=== PATIENT | female | born 1960 | race Caucasian/White ===

== ENCOUNTER 2017-01-06 08:59 | Emergency (ER) | payer OTHER ==
[~2017-01-06] VITALS: Ht 172.7 cm; Wt 84.0 kg
[2017-01-06 09:01] VITALS: BP 219/112; PULSE 80; RESP 18; TEMP 97.7; O2SAT 98
--- NOTE | 2017-01-06 09:42 | RADRPT ---
EXAM DATE/TIME: 01/06/2017 09:29 [facility] COMPARISON: No previous studies available for comparison. INDICATIONS : Pain and swelling right knee, denies injury MEDICAL HISTORY : Hypertension. SURGICAL HISTORY : None. ENCOUNTER: Initial ACUITY: 1 week PAIN SCORE: 7/10 LOCATION: Right Knee FINDINGS: No definite fractures, or dislocations are identified. No definite lytic or sclerotic lesion is seen . Slight osteopenia is seen. Small joint effusion is present. CONCLUSION: Slight osteopenia and small joint effusion. Ghada Sanz MD on January 06, 2017 at 9:39 Board Certified Radiologist. This report was verified electronically.
--- NOTE | 2017-01-06 10:36 | RADRPT ---
EXAM DATE/TIME: 01/06/2017 10:01 [facility] COMPARISON: No previous studies available for comparison. INDICATIONS : Right leg swelling. MEDICAL HISTORY : Hypertension. Traumatic brain injury. CVA. Tobacco use. SURGICAL HISTORY : Tonsillectomy. ENCOUNTER: Initial ACUITY: 3 days PAIN SCORE: 8/10 LOCATION: Right leg. TECHNIQUE: Venous ultrasound of the leg was performed from the inguinal ligament to the proximal calf. Real-nancy e, color Doppler and spectral tracing, compression and augmentation techniques were used. FINDINGS: There is normal compressibility of the deep venous system from the inguinal region to the proximal ca lf. No echogenic clot is seen in the lumen of the common femoral, femoral, popliteal, and posterior tibial veins. There is a normal response of the venous system to proximal and distal augmentation an d respiration. An elongated largely anechoic collection in the medial right popliteal space has the appearance of Ba ker's cyst. CONCLUSION: No evidence of right leg DVT Probable Feliciano's cyst Mendel Montes MD on January 06, 2017 at 10:34 Board Certified Radiologist. This report was verified electronically.
[2017-01-06] MEDS ORDERED: KETOROLAC TROMETHAMINE 60 MG/2 ML (IM) VIAL IM ONE (10:45)
--- NOTE | 2017-01-06 10:45 | PD ---
HPI Chief Complaint: Pain: Acute or Chronic Time Seen by Provider: 09:09 Travel History International Travel<30 days: No Contact w/Intl Traveler<30days: No Traveled to known affect area: No History of Present Illness HPI This is a 56-year-old female who presents to the emergency department with swelling and pain in her right knee, constant, severe, worsening over the past week described as aching pain. She is evacuating from [place] and has been in the car for 7 hours but her pain started prior to that. Initially she saw her primary care doctor who prescribed her an anti-inflammatory. She says that helped some but over the past week her pain is gotten worse. She said she put her leg up yesterday and the swelling went down significantly. She denies any fevers or chills. PFSH Past Medical History Cerebrovascular Accident: Yes (2011) Diminished Hearing: No Hypertension: Yes Neurologic: Yes (TBI [facility] [employer] 2011) Influenza Vaccination: Yes ?: Not Past Surgical History Surgical History: No Previous Surgery Social History Alcohol Use: No Tobacco Use: Yes (05/03 PPD) Substance Use: No Allergies-Medications (Allergen,Severity, Reaction): Coded Allergies: No Known Allergies (Unverified , 01/06/17) Reported Meds & Prescriptions Reported Meds & Active Scripts Active Active Prescriptions or Reported Medications Unobtainable Review of Systems Except as stated in HPI: all other systems reviewed are Neg Physical Exam Narrative GENERAL:Well appearing, no acute distress SKIN: Focused skin assessment warm and dry. HEAD: Atraumatic. Normocephalic. EYES: Pupils equal and round. No injection or drainage. ENT: Moist mucous membranes NECK: Trachea midline. CARDIOVASCULAR: Regular rate and rhythm. No murmur appreciated. 2+ right DP pulse with normal capillary refill. 2+ edema of the right lower extremity. RESPIRATORY: Clear to auscultation. Breath sounds equal bilaterally. GASTROINTESTINAL: Abdomen soft, non-tender, nondistended. MUSCULOSKELETAL: No obvious deformities. Mild joint effusion. No warmth of the knee, able to flex and extend the knee passively without severe pain. Calf tenderness present. NEUROLOGICAL: Awake and alert. No obvious cranial nerve deficits. Moving all extremities. PSYCHIATRIC: Appropriate mood and affect; insight and judgment normal. Data Data Last Documented VS Vital Signs Date Time Temp Pulse Resp B/P (MAP) Pulse Ox O2 Delivery O2 Flow Rate FiO2 9/7/17 09:01 97.7 80 18 219/112 (147) 98 Room Air Orders Orders Us Leg Venous Doppler (01/06/17 ) Knee, Complete (4vws) (01/06/17 ) [facility] Medical Decision Making Medical Screen Exam Complete: Yes Emergency Medical Condition: Yes Interpretation(s) Afebrile, no tachycardia, hypertensive Last 24 hours Impressions Lower Extremity Ultrasound 01/06/17 0000 Signed Impressions: Service Date/Time: December 10:01 - CONCLUSION: No evidence of right leg DVT Probable Feliciano's cyst Mendel Montes MD Knee X-Ray 01/06/17 0000 Signed Impressions: Service Date/Time: December 09:29 - CONCLUSION: Slight osteopenia and small joint effusion. Ghada Sanz MD Differential Diagnosis Osteoarthritis, Feliciano cyst, DVT, gout Narrative Course This is a 56-year-old female who presents to the emergency department with pain and swelling in her right knee and right lower extremity that's been going on for 1 week. Her exam is concerning for DVT. She is a normal neurovascular exam is significant amount of edema on the right calf. X-ray demonstrates a small joint effusion. Ultrasound is negative for DVT. She has no signs of septic arthritis. I suspect she has an exacerbation of osteoarthritis with some dependent edema. I think she can be managed conservatively with compression stockings, Guilherme wrap, elevation and continued pain control. Given the appearance of the leg I recommended that she follow-up for a repeat ultrasound in 10 days. Patient will be discharged home. Diagnosis Primary Impression: Leg pain Qualified Codes: M79.604 - Pain in right leg Patient Instructions: General Instructions Additional Instructions: If you develop fevers, chills, worsening swelling, coolness or numbness of the leg or foot return to the emergency department. Follow up with your primary care physician or in an emergency department in 10 days for a repeat ultrasound. Wrap, ice, elevate and rest your leg. Med/Other Pt SpecificInfo: Prescription(s) given Scripts Meloxicam (Meloxicam) 7.5 Mg Tab 7.5 MG PO DAILY for Arthritis Pain, #15 TAB 0 Refills Prov: Laura Evans MD 01/06/17 Tramadol (Tramadol) 50 Mg Tab 50 MG PO Q6H Y for PAIN, #15 TAB 0 Refills Prov: Laura Evans MD 01/06/17 Disposition: 01 DISCHARGE HOME Condition: Stable Laura Evans MD Jan 06, 2017 10:45
[2017-01-06] MEDS ORDERED: TRAM50TA PO (10:49)
[2017-01-06] MEDS ORDERED: MELO7.5T4 PO (10:50)
[2017-01-06 11:00] VITALS: BP 176/89
== END 2017-01-06 11:26 | disposition home or self-care (01) ==
LOC: NEPD 08:59
DX: M79.604 Pain in right leg (principal)
CPT/HCPCS: 73564; 93971; 96372; 99284; J1885

== ENCOUNTER 2017-01-21 17:14 | Emergency (ER) | payer SELFPAY ==
[~2017-01-21] VITALS: Ht 172.7 cm; Wt 85.0 kg
[~2017-01-21 17:14] MED LIST: MELO7.5T4 PO; TRAM50TA PO
[2017-01-21 17:16] VITALS: BP 140/92; PULSE 85; RESP 13; TEMP 97.6; O2SAT 97
[2017-01-21] MEDS ORDERED: oxyCODONE/ACETAMINOPHEN 5 MG/325 MG TAB PO ONE (19:00)
--- NOTE | 2017-01-21 19:48 | PD ---
HPI Chief Complaint: Pain: Acute or Chronic Time Seen by Provider: 19:00 Travel History International Travel<30 days: No Contact w/Intl Traveler<30days: No Traveled to known affect area: No History of Present Illness HPI 56-year-old female patient presents to the emergency department for evaluation of right leg swelling and pain. Patient describes the pain as achy, severe and constant. Patient was evaluated at our facility for the same condition 2 weeks ago. A lower extremity ultrasound was ordered at that time and it showed no evidence of a DVT. However the pain and swelling persists. Patient states she is unable to take a couple steps without significant swelling and pain. The patient states that the swelling subsides greatly when the leg is elevated. Patient denies any chest pain, shortness, fevers, chills, malaise, abdominal pain, nausea, vomiting, diarrhea, lightheadedness or history of blood clots. PFSH Past Medical History Cerebrovascular Accident: Yes (2011) Diminished Hearing: No Hypertension: Yes Neurologic: Yes (TBI [facility] 2011) ?: Not Social History Alcohol Use: No Tobacco Use: Yes Substance Use: No Allergies-Medications (Allergen,Severity, Reaction): Coded Allergies: No Known Allergies (Unverified , 01/06/17) Reported Meds & Prescriptions Reported Meds & Active Scripts Active Lortab (Hydrocodone-Acetaminophen) 5-325 Mg Tab 1-2 Tab PO Q6H PRN Meloxicam 7.5 Mg Tab 7.5 Mg PO DAILY Tramadol (Tramadol HCl) 50 Mg Tab 50 Mg PO Q6H PRN Review of Systems Except as stated in HPI: all other systems reviewed are Neg Physical Exam Narrative GENERAL: Well-developed well-nourished 56-year-old female that appears to be in pain. SKIN: Focused skin assessment warm/dry. HEAD: Atraumatic. Normocephalic. EYES: Pupils equal and round. No scleral icterus. No injection or drainage. ENT: No nasal bleeding or discharge. Mucous membranes pink and moist. NECK: Trachea midline. No JVD. CARDIOVASCULAR: Regular rate and rhythm. No murmur appreciated. Bilateral pedal pulses palpated. Capillary refill within normal limits. 2+ Pitting edema of right lower extremity. RESPIRATORY: No accessory muscle use. Clear to auscultation. Breath sounds equal bilaterally. GASTROINTESTINAL: Abdomen soft, non-tender, nondistended. Hepatic and splenic margins not palpable. MUSCULOSKELETAL: No obvious deformities. No clubbing. No cyanosis. Mild joint effusion and warmth noted in right knee. Able to flex and extend right knee actively with pain. NEUROLOGICAL: Awake and alert. No obvious cranial nerve deficits. Motor grossly within normal limits. Normal speech. PSYCHIATRIC: Appropriate mood and affect; insight and judgment normal. Data Data Last Documented VS Vital Signs Date Time Temp Pulse Resp B/P (MAP) Pulse Ox O2 Delivery O2 Flow Rate FiO2 01/21/17 21:27 01/21/17 17:16 97.6 85 13 97 Orders Orders Oxycodone-Acetamin 5-325 Mg (Percocet (01/21/17 19:00) Us Leg Venous Doppler (01/21/17 ) Ct Knee W/O Contrast (01/21/17 ) MDM Medical Decision Making Medical Screen Exam Complete: Yes Emergency Medical Condition: Yes Medical Record Reviewed: Yes Interpretation(s) Afebrile, no tachycardia Differential Diagnosis Differential diagnoses include but are not limited to DVT, osteoarthritis, gout , cellulitis, Feliciano's cyst Narrative Course 56-year-old female patient presents to the emergency department for evaluation of right leg swelling and pain. She was evaluated at our facility approximately 2 weeks ago for the same complaint. Patient states the pain and swelling have not improved at all. Patient states she can only take a few steps without having significant swelling and pain in her right leg. Patient denies any chest pain, shortness breath, fever, chills, malaise, nausea, vomiting, diarrhea, lightheadedness or history of blood clots. CT of the right knee without contrast and ultrasound of the right leg ordered and pending. Patient ordered Percocet by mouth for pain. CT of the right knee without contrast shows mild osteoarthritis involving patellofemoral and femorotibial joint, moderate-sized suprapatellar knee joint effusion, no acute fracture or dislocation Ultrasound of Right Lower Extremity Shows No Evidence of Deep Vein Thrombosis within the Right Lower Extremity. Right-sided popliteal Cyst measuring 5.72.[address] Grissom has assumed care of this patient. Please see his note for further details and disposition. Scripts Hydrocodone-Acetaminophen (Lortab) 5-325 Mg Tab 1-2 TAB PO Q6H Y for PAIN SCALE 6 TO 10, #20 TAB 0 Refills Prov: Blaine Grissom MD 01/21/17 Disposition: 01 DISCHARGE HOME Condition: Stable Francesca Bertrand Jan 21, 2017 19:48
--- NOTE | 2017-01-21 19:53 | RADRPT ---
EXAM DATE/TIME: 01/21/2017 19:04 [facility] COMPARISON: No previous studies available for comparison. INDICATIONS : Right knee pain and swelling X 2 weeks. RADIATION DOSE: 7.29 CTDIvol (mGy) MEDICAL HISTORY : Cerebrovascular disease. Hypertension. SURGICAL HISTORY : None. ENCOUNTER: Initial ACUITY: 2 weeks PAIN SCALE: 6/10 LOCATION: Right knee TECHNIQUE: Volumetric scanning of the knee was performed. Using automated exposure control and adjustment of th e mA and/or kV according to patient size, radiation dose was kept as low as reasonably achievable to obtain optimal diagnostic quality images. DICOM format image data is available electronically for re view and comparison. FINDINGS: Mild osteoarthritis is noted involving the patellofemoral and femoral tibial joints. There is a moder ate sized suprapatellar knee joint effusion. There is no acute fracture or dislocation. No focal bony abnorma lity is noted. CONCLUSION: 1. Mild osteoarthritis involving the patellofemoral and femoral tibial joints. 2. Moderate-sized suprapatellar knee joint effusion. 3. No acute fracture or dislocation. Lalo Martinez MD on January 21, 2017 at 19:36 Board Certified Radiologist. This report was verified electronically.
--- NOTE | 2017-01-21 20:52 | RADRPT ---
EXAM DATE/TIME: 01/21/2017 20:19 [facility] COMPARISON: US LEG RIGHT VENOUS DOPPLER, January 06, 2017, 10:01. INDICATIONS : Right leg pain. MEDICAL HISTORY : Hypertension. Traumatic brain injury. CVA. Tobacco use. SURGICAL HISTORY : Tonsillectomy. ENCOUNTER: Subsequent ACUITY: 2 weeks PAIN SCORE: 5/10 LOCATION: Right leg. TECHNIQUE: Venous ultrasound of the leg was performed from the inguinal ligament to the proximal calf. Real-nancy e, color Doppler and spectral tracing, compression and augmentation techniques were used. FINDINGS: There is normal compressibility of the deep venous system from the inguinal region to the proximal ca lf. No echogenic clot is seen in the lumen of the common femoral, femoral, popliteal, and posterior tibial veins. There is a normal response of the venous system to proximal and distal augmentation an d respiration. There is a popliteal cyst measuring 5.7 x 2.8 x 1.2 cm. CONCLUSION: No evidence of deep venous thrombosis within the right lower extremity. Right-sided popliteal cyst measuring 5.7 x 2.8 x 1.2 cm. Lalo Martinez MD on January 21, 2017 at 20:50 Board Certified Radiologist. This report was verified electronically.
[2017-01-21] MEDS ORDERED: HYDR-3533 PO (21:20)
--- NOTE | 2017-01-21 21:20 | PD ---
Data Data Last Documented VS Vital Signs Date Time Temp Pulse Resp B/P (MAP) Pulse Ox O2 Delivery O2 Flow Rate FiO2 01/21/17 21:27 01/21/17 17:16 97.6 85 13 97 Orders Orders Oxycodone-Acetamin 5-325 Mg (Percocet (01/21/17 19:00) Us Leg Venous Doppler (01/21/17 ) Ct Knee W/O Contrast (01/21/17 ) MDM Medical Record Reviewed: Yes Supervised Visit with ZUALY: No Narrative Course Last 24 hours Impressions Lower Extremity Ultrasound 01/21/17 0000 Signed Impressions: Service Date/Time: Saturday, January 21, 2017 20:19 - CONCLUSION: No evidence of deep venous thrombosis within the right lower extremity. Right-sided popliteal cyst measuring 5.7 x 2.8 x 1.2 cm. Lalo Martinez MD Lower Extremity CT 01/21/17 0000 Signed Impressions: Service Date/Time: Saturday, January 21, 2017 19:04 - CONCLUSION: 1. Mild osteoarthritis involving the patellofemoral and femoral tibial joints. 2. Moderate-sized suprapatellar knee joint effusion. 3. No acute fracture or dislocation. Lalo Martinez MD The patient is resting comfortably and feels better, is alert and in no distress. The patients results and examination findings were discussed. The repeat examination is unremarkable and benign. The history, exam, diagnostic testing, and current condition do not suggest any significant pathology to warrant further testing, continued ED treatment, admission, or surgical evaluation at this point. The vital signs have been stable. The patient does not have uncontrollable pain, intractable vomiting, or other significant symptoms. The patient's condition is stable and appropriate for discharge. The patient will pursue further outpatient evaluation with a primary care physician or other designated or consulting physician as indicated in the discharge instructions. The patient expressed understanding and was agreeable with this plan. Diagnosis Primary Impression: Popliteal cyst, unruptured Qualified Codes: M71.21 - Synovial cyst of popliteal space [Feliciano], right knee Referrals: Abilio Sequeira MD call for appointment Additional Instruction: You have a choice when it comes to health care, and we are glad that you chose [facility]. Hopefully, we have met your expectations on today's visit. You are welcome to return to [facility] at any time, as we are committed to meeting the health care needs of our community. Med/Other Pt SpecificInfo: Prescription(s) given Scripts Hydrocodone-Acetaminophen (Lortab) 5-325 Mg Tab 1-2 TAB PO Q6H Y for PAIN SCALE 6 TO 10, #20 TAB 0 Refills Prov: Blaine Grissom MD 01/21/17 Disposition: 01 DISCHARGE HOME Condition: Stable Blaine Grissom MD Jan 21, 2017 21:20
== END 2017-01-21 21:46 | disposition home or self-care (01) ==
LOC: NEPD 17:14
DX: M71.21 Synovial cyst of popliteal space [Baker], right knee (principal); Z72.0 Tobacco use
CPT/HCPCS: 73700; 93971; 99285